=== PATIENT | female | born 1960 | race Caucasian/White ===

== ENCOUNTER → 2017-03-14 | Outpatient (CLI) | payer OTHER ==
--- NOTE | 2017-03-14 11:23 | XR ---
EXAMINATION TYPE: XR lumbosacral spine min 4V DATE OF EXAM: 03/14/2017 COMPARISON: NONE HISTORY: Fibromyalgia, arthritis, low back pain right side TECHNIQUE: Five-view lumbar spine FINDINGS: Disc heights are preserved. Vertebral body heights are preserved. Alignment is normal. Ther e is some facet hypertrophy on the left at L5-S1. Milder facet hypertrophy is present on the right L5 -S1. There 5 lumbar-type tubal bodies. Pedicles are intact. IMPRESSION: 1. Mild facet degenerative change lower lumbar spine.
== END | disposition home or self-care (01) ==
LOC: RADXRMAIN 10:52
PROVIDERS: ATTEND Family Medicine
DX: M47.816 Spondylosis without myelopathy or radiculopathy, lumbar region (principal)
CPT/HCPCS: 72110